=== PATIENT | male | born 1995 | race American Indian/Alaskan Native ===

== ENCOUNTER 2019-06-01 16:13 | Emergency (ER) | payer OTHER ==
[2019-06-01 18:28] VITALS: BP 126/67
--- NOTE | 2019-06-01 18:29 | Event Note ---
ED Screening Note ED Screening Note: states that he bites his nail states he has noticed swelling to the right 4th finger no fall or injury no numbness or weakness no drainage no fever no chills no n/v PMHx no allergies to meds
--- NOTE | 2019-06-01 18:29 | Emergency Department Report ---
- General Chief complaint: Extremity Problem,Nontraumatic Stated complaint: RT FINGER SWOLLEN Time Seen by Provider: 06/01/19 18:26 Source: patient Mode of arrival: Ambulatory Limitations: No Limitations - History of Present Illness Initial comments: pt is a 23 yo male who states that he bites his nails. he states a couple of days ago he bit his nail too far down. he states he has noticed swelling to the right 4th finger. no fall or injury, no numbness or weakness, no drainage, no fever, no chills, no n/v. PMHx none. no allergies to meds - Related Data Previous Rx's Medication Instructions Recorded Last Taken Type Ibuprofen [Motrin 800 MG tab] 800 mg PO Q8HR PRN #30 tablet 10/26/15 Unknown Rx Cyclobenzaprine [Flexeril 10 MG 10 mg PO BID PRN #14 tablet 11/11/15 Unknown Rx TAB] traMADoL [Ultram 50 MG tab] 50 mg PO Q6HR PRN #14 tablet 11/11/15 Unknown Rx Sulfamethoxazole/Trimethoprim 1 each PO BID 7 Days #14 tablet 06/01/19 Unknown Rx [Bactrim DS TAB] Allergies Allergy/AdvReac Type Severity Reaction Status Date / Time No Known Allergies Allergy Verified 04/16/15 09:51 Abscess Boil HPI - HPI Chief Complaint: Extremity Problem,Nontraumatic Stated Complaint: RT FINGER SWOLLEN Time Seen by Provider: 06/01/19 18:26 Home Medications: Previous Rx's Medication Instructions Recorded Last Taken Type Ibuprofen [Motrin 800 MG tab] 800 mg PO Q8HR PRN #30 tablet 10/26/15 Unknown Rx Cyclobenzaprine [Flexeril 10 MG 10 mg PO BID PRN #14 tablet 11/11/15 Unknown Rx TAB] traMADoL [Ultram 50 MG tab] 50 mg PO Q6HR PRN #14 tablet 11/11/15 Unknown Rx Sulfamethoxazole/Trimethoprim 1 each PO BID 7 Days #14 tablet 06/01/19 Unknown Rx [Bactrim DS TAB] Allergies/Adverse Reactions: Allergies Allergy/AdvReac Type Severity Reaction Status Date / Time No Known Allergies Allergy Verified 04/16/15 09:51 ED Review of Systems ROS: Stated complaint: RT FINGER SWOLLEN Other details as noted in HPI Comment: All other systems reviewed and negative ED Past Medical Hx - Past Medical History Previous Medical History?: No Additional medical history: back pain - Surgical History Past Surgical History?: No - Social History Smoking Status: Never Smoker Substance Use Type: None - Medications Home Medications: Home Medications Medication Instructions Recorded Confirmed Last Taken Type Ibuprofen [Motrin 800 MG tab] 800 mg PO Q8HR PRN #30 tablet 10/26/15 Unknown Rx Cyclobenzaprine [Flexeril 10 MG 10 mg PO BID PRN #14 tablet 11/11/15 Unknown Rx TAB] traMADoL [Ultram 50 MG tab] 50 mg PO Q6HR PRN #14 tablet 11/11/15 Unknown Rx Sulfamethoxazole/Trimethoprim 1 each PO BID 7 Days #14 tablet 06/01/19 Unknown Rx [Bactrim DS TAB] ED Physical Exam - General Limitations: No Limitations General appearance: alert, in no apparent distress - Head Head exam: Present: atraumatic, normocephalic - Eye Eye exam: Present: normal appearance - ENT ENT exam: Present: mucous membranes moist - Neurological Exam Neurological exam: Present: alert, oriented X3 - Psychiatric Psychiatric exam: Present: normal affect, normal mood - Skin Skin exam: Present: warm, dry, other (area of edema present to the distal end of the right ring finger, there is small area of purulence underneath the skin present around the nail bed, neurovascularly intact) ED Course Vital Signs 06/01/19 17:12 Temperature 98.7 F Pulse Rate 82 Respiratory 16 Rate Blood Pressure 126/67 O2 Sat by Pulse 98 Oximetry ED Medical Decision Making - Medical Decision Making pt is a 23 yo male who states that he bites his nails. he states a couple of d ays ago he bit his nail too far down. he states he has noticed swelling to the right 4th finger. no fall or injury, no numbness or weakness, no drainage, no fever, no chills, no n/v. PMHx none. no allergies to meds. vitals are normal. on exam: area of edema present to the distal end of the right ring finger, there is small area of purulence underneath the skin present around the nail bed neurovascularly intact. Examination consistent with paronychia, appears to be in the early stages, is not drainable at this time, will place patient on antibiotics and have patient have the area reexamined in 3 days, discussed that if antibiotics do not work he may have to have an I&D performed in the future. Patient given prescription for Bactrim. advised pt to please take medication as prescribed. please stop biting the nails. follow up with a primary care doctor in the next 3 days for reexamination. return to the emergency room for any new or worsening symptoms or if symptoms are not improving despite antibiotics, if it gets large may have to have an incision and drainage procedure. - Differential Diagnosis Paronychia, abscess, cellulitis, onychomycosis Critical care attestation.: If time is entered above; I have spent that time in minutes in the direct care of this critically ill patient, excluding procedure time. ED Disposition Clinical Impression: Paronychia Disposition: DC- TO HOME OR SELFCARE Is pt being admited?: No Does the pt Need Aspirin: No Condition: Stable Instructions: Paronychia (ED) Additional Instructions: please take medication as prescribed. please stop biting the nails. follow up with a primary care doctor in the next 3 days for reexamination. return to the emergency room for any new or worsening symptoms or if symptoms are not improving despite antibiotics, if it gets large may have to have an incision and drainage procedure. Prescriptions: Sulfamethoxazole/Trimethoprim [Bactrim DS TAB] 1 each PO BID 7 Days #14 tablet Referrals: LENNIE GOMEZ MD [Staff Physician] - 2-3 Days [facility] [Outside] - 2-3 Days [facility] [Outside] - 2-3 Days Time of Disposition: 18:31 Print Language: ESTONIAN
== END 2019-06-01 18:33 | disposition home or self-care (01) ==
LOC: ED 16:13
DX: L03.011 Cellulitis of right finger (principal); M54.9 Dorsalgia, unspecified; Z79.1 Long term (current) use of non-steroidal anti-inflammatories (NSAID); Z79.899 Other long term (current) drug therapy
CPT/HCPCS: 99281

== ENCOUNTER 2019-12-20 13:42 | Emergency (ER) | payer OTHER ==
[2019-12-20 13:47] VITALS: BP 134/71
[2019-12-20 14:20] LABS: Bilirubin,Urine NEG (Negative); Blood,Urine NEG (Negative); Color,Urine Amber (Yellow); Mucus,Urine 3+ /HPF
[2019-12-20 14:36] LABS: Basophils % (Auto) 0.4 % (0.0-1.8); Eosinophils % (Auto) 0.3 % (0.0-4.3); Hematocrit 43.6 % (35.5-45.6); Hemoglobin 15.3 gm/dl (11.8-15.2); Lymphocytes # (Auto) 1.2 K/mm3 (1.2-5.4); Lymphocytes % (Auto) 34.2 % (13.4-35.0); Mean Corpuscular HGB Conc 35 % (32-34); Mean Corpuscular Volume 93 fl (84-94); Monocytes # (Auto) 0.3 K/mm3 (0.0-0.8); Monocytes % (Auto) 10.1 % (0.0-7.3); Platelet Count 188 K/mm3 (140-440); Red Blood Count 4.69 M/mm3 (3.65-5.03); Red Cell Distribution Width 13.2 % (13.2-15.2)
[2019-12-20 14:47] LABS: Alanine Aminotransferase 16 units/L (7-56); Albumin 4.8 g/dL (3.9-5); BUN/Creatinine Ratio 11; Blood Urea Nitrogen 11 mg/dL (9-20); Calcium 9.8 mg/dL (8.4-10.2); Hemolysis Index 8
--- NOTE | 2019-12-20 16:21 | Emergency Department Report ---
ED General Adult HPI - General Chief complaint: Abdominal Pain Stated complaint: abd pains Time Seen by Provider: 12/20/19 16:10 Source: patient Mode of arrival: Ambulatory Limitations: No Limitations - History of Present Illness Initial comments: Patient is a 24-year-old male who presents emergency room with complaints of generalized abdominal discomfort that began 3 days ago. Patient states that he has not had a bowel movement in 5 days. He has not tried any medications to relieve his symptoms. He is tolerating p.o. intake without difficulty. He denies any nausea, vomiting, diarrhea, fever, urinary symptoms, back pain, hematochezia, melena, hematemesis. He denies any sick contacts or recent travel. No past medical history. No allergies to medications. - Related Data Previous Rx's Medication Instructions Recorded Last Taken Type Ibuprofen [Motrin 800 MG tab] 800 mg PO Q8HR PRN #30 tablet 10/26/15 Unknown Rx Cyclobenzaprine [Flexeril 10 MG 10 mg PO BID PRN #14 tablet 11/11/15 Unknown Rx TAB] traMADoL [Ultram 50 MG tab] 50 mg PO Q6HR PRN #14 tablet 11/11/15 Unknown Rx Sulfamethoxazole/Trimethoprim 1 each PO BID 7 Days #14 tablet 06/01/19 Unknown Rx [Bactrim DS TAB] Docusate Sodium [Colace] 100 mg PO BID PRN #20 capsule 12/20/19 Unknown Rx Magnesium Citrate [Citrate of 296 ml PO ONCE #1 bottle 12/20/19 Unknown Rx Magnesia] Allergies Allergy/AdvReac Type Severity Reaction Status Date / Time No Known Allergies Allergy Verified 12/20/19 13:43 ED Review of Systems ROS: Stated complaint: abd pains Other details as noted in HPI Comment: All other systems reviewed and negative ED Past Medical Hx - Past Medical History Previous Medical History?: No Additional medical history: back pain - Surgical History Past Surgical History?: No - Social History Smoking Status: Current Every Day Smoker Substance Use Type: Alcohol - Medications Home Medications: Home Medications Medication Instructions Recorded Confirmed Last Taken Type Ibuprofen [Motrin 800 MG tab] 800 mg PO Q8HR PRN #30 tablet 10/26/15 Unknown Rx Cyclobenzaprine [Flexeril 10 MG 10 mg PO BID PRN #14 tablet 11/11/15 Unknown Rx TAB] traMADoL [Ultram 50 MG tab] 50 mg PO Q6HR PRN #14 tablet 11/11/15 Unknown Rx Sulfamethoxazole/Trimethoprim 1 each PO BID 7 Days #14 tablet 06/01/19 Unknown Rx [Bactrim DS TAB] Docusate Sodium [Colace] 100 mg PO BID PRN #20 capsule 12/20/19 Unknown Rx Magnesium Citrate [Citrate of 296 ml PO ONCE #1 bottle 12/20/19 Unknown Rx Magnesia] ED Physical Exam - General Limitations: No Limitations General appearance: alert, in no apparent distress - Head Head exam: Present: atraumatic, normocephalic - Eye Eye exam: Present: normal appearance - ENT ENT exam: Present: mucous membranes moist - Respiratory Respiratory exam: Present: normal lung sounds bilaterally. Absent: respiratory distress, wheezes, rales, rhonchi, stridor, chest wall tenderness, accessory muscle use, decreased breath sounds, prolonged expiratory - Cardiovascular Cardiovascular Exam: Present: regular rate, normal rhythm, normal heart sounds. Absent: systolic murmur, diastolic murmur, rubs, gallop - GI/Abdominal GI/Abdominal exam: Present: soft, normal bowel sounds, other (normal bowel sounds in all quadrants). Absent: distended, tenderness, guarding, rebound, rigid - Neurological Exam Neurological exam: Present: alert, oriented X3 - Psychiatric Psychiatric exam: Present: normal affect, normal mood - Skin Skin exam: Present: warm, dry, intact ED Course Vital Signs 12/20/19 13:44 Temperature 98 F Pulse Rate 71 Respiratory 18 Rate Blood Pressure 134/71 O2 Sat by Pulse 98 Oximetry ED Medical Decision Making - Lab Data Result diagrams: 12/20/19 14:05 12/20/19 14:05 Lab Results 12/20/19 12/20/19 12/20/19 Range/Units 13:50 14:05 14:05 WBC 3.4 L (4.5-11.0) K/mm3 RBC 4.69 (3.65-5.03) M/mm3 Hgb 15.3 H (11.8-15.2) gm/dl Hct 43.6 (35.5-45.6) % MCV 93 (84-94) fl MCH 33 H (28-32) pg MCHC 35 H (32-34) % RDW 13.2 (13.2-15.2) % Plt Count 188 (140-440) K/mm3 Lymph % (Auto) 34.2 (13.4-35.0) % [place] % (Auto) 10.1 H (0.0-7.3) % Eos % (Auto) 0.3 (0.0-4.3) % Baso % (Auto) 0.4 (0.0-1.8) % Lymph # 1.2 (1.2-5.4) K/mm3 [place] # 0.3 (0.0-0.8) K/mm3 Eos # 0.0 (0.0-0.4) K/mm3 Baso # 0.0 (0.0-0.1) K/mm3 Seg Neutrophils % 55.0 (40.0-70.0) % Seg Neutrophils # 1.9 (1.8-7.7) K/mm3 Sodium 136 L (137-145) mmol/L Potassium 3.8 (3.6-5.0) mmol/L Chloride 99.6 (98-107) mmol/L Carbon Dioxide 26 (22-30) mmol/L Anion Gap 14 mmol/L BUN 11 (9-20) mg/dL Creatinine 1.0 (0.8-1.3) mg/dL Estimated GFR > 60 ml/min BUN/Creatinine Ratio 11 % Glucose 112 H (75-100) mg/dL Calcium 9.8 (8.4-10.2) mg/dL Total Bilirubin 0.80 (0.1-1.2) mg/dL AST 28 (5-40) units/L ALT 16 (7-56) units/L Alkaline Phosphatase 58 (35-129) units/L Total Protein 8.1 (6.3-8.2) g/dL Albumin 4.8 (3.9-5) g/dL Albumin/Globulin Ratio 1.5 % Urine Color Neda (Yellow) Urine Turbidity Clear (Clear) Urine pH 5.0 (5.0-7.0) Ur Specific [place] 1.034 H (1.003-1.030) Urine Protein 30 mg/dl (Negative) mg/dL Urine Glucose (UA) Neg (Negative) mg/dL Urine Ketones Neg (Negative) mg/dL Urine Blood Neg (Negative) Urine Nitrite Neg (Negative) Urine Bilirubin Neg (Negative) Urine Urobilinogen 4.0 (<2.0) mg/dL Ur Leukocyte Esterase Neg (Negative) Urine WBC (Auto) 1.0 (0.0-6.0) /HPF Urine RBC (Auto) 9.0 (0.0-6.0) /HPF U Epithel Cells (Auto) 1.0 (0-13.0) /HPF Urine Mucus 3+ /HPF - Medical Decision Making Patient is a 24-year-old male who presents emergency room with complaints of generalized abdominal discomfort that began 3 days ago. Patient states that he has not had a bowel movement in 5 days. He has not tried any medications to relieve his symptoms. He is tolerating p.o. intake without difficulty. He denies any nausea, vomiting, diarrhea, fever, urinary symptoms, back pain, hematochezia, melena, hematemesis. He denies any sick contacts or recent travel. No past medical history. No allergies to medications. VSS. on exam: No abdominal tenderness to exam, no guarding, no rebound, no rigidity, normal bowel sounds in all quadrants. Labs and urine studies ordered prior to my examination. Labs are stable, UA is within normal limits. Patient is not presenting with any obstructive signs. Patient will be given a prescription for magnesium citrate and Colace. Advised patient to please take medication as prescribed. Increase your water intake over the next several days. Eat a high- fiber diet. Follow-up with a primary care doctor. Return to emergency room immediately for any new or worsening symptoms including but not limited to worsening abdominal pain, fever, constant vomiting, unable to tolerate by mouth intake, unable to pass gas, etc. Critical care attestation.: If time is entered above; I have spent that time in minutes in the direct care of this critically ill patient, excluding procedure time. ED Disposition Clinical Impression: Abdominal pain Qualifiers: Abdominal location: generalized Qualified Code(s): R10.84 - Generalized abdominal pain Constipation Qualifiers: Constipation type: unspecified constipation type Qualified Code(s): K59.00 - Constipation, unspecified Disposition: TO HOME OR SELFCARE Is pt being admited?: No Does the pt Need Aspirin: No Condition: Stable Instructions: Abdominal Pain (ED), Constipation (ED), High Fiber Diet (ED) Additional Instructions: please take medication as prescribed. Increase your water intake over the next several days. Eat a high-fiber diet. Follow-up with a primary care doctor. Return to emergency room immediately for any new or worsening symptoms including but not limited to worsening abdominal pain, fever, constant vomiting, unable to tolerate by mouth intake, unable to pass gas, etc. Prescriptions: Magnesium Citrate [Citrate of Magnesia] 296 ml PO ONCE #1 bottle Docusate Sodium [Colace] 100 mg PO BID PRN #20 capsule PRN Reason: constipation Referrals: LENNIE GOMEZ MD [Staff Physician] - 2-3 Days [facility] [Provider Group] - 2-3 Days [facility] [place] [Outside] - 2-3 Days Time of Disposition: 16:21 Print Language: GUYANESE
== END 2019-12-20 16:30 | disposition home or self-care (01) ==
LOC: ED 13:42
DX: K59.00 Constipation, unspecified (principal); R10.84 Generalized abdominal pain; F17.200 Nicotine dependence, unspecified, uncomplicated; Z79.1 Long term (current) use of non-steroidal anti-inflammatories (NSAID); Z79.899 Other long term (current) drug therapy
CPT/HCPCS: 36415; 80053; 81001; 85025